=== PATIENT | female | born 1945 | race Native Hawaiian/Other Pacific Islander ===

== ENCOUNTER 2016-08-21 09:38 | Outpatient (CLI) | payer OTHER ==
[~2016-08-21 09:38] MED LIST: ACET7.5T70 PO; ALPR0.2566 PO; LISI20TA11 PO; PROAIR HFA IN; SIMV20TA2 PO; TIOTCAP2 INH; TRAMADOL HCL100 M1 PO; ZOLP10TA2 PO; ZYRTEC ALLGY10 M1 PO
== END 2016-08-21 11:30 | disposition home or self-care (01) ==
LOC: MAMMO 09:38
DX: Z12.31 Encounter for screening mammogram for malignant neoplasm of breast (principal)
CPT/HCPCS: G0202-TC